=== PATIENT | female | born 1965 | race Hispanic/Latino ===

== ENCOUNTER → 2019-08-07 | Outpatient (CLI) | payer OTHER ==
[~2019-08-07] MED LIST: CALCIUM 500+D1 EACH PO; IOPAMIDOL 370 MG/ML 200 ML INFUS..BTL INJ ONE; OMEGA 3 1,0001 EACH PO; SODIUM CHLORIDE 0.9% 250ML 250 ML ONE
--- NOTE | 2019-08-07 10:38 | Diagnostic Imaging Report ---
EXAM: CT Abdomen and Pelvis WITHOUT and WITH intravenous contrast - Hematuria protocol INDICATION: Gross hematuria COMPARISON: None. TECHNIQUE: Abdomen and pelvis were scanned utilizing a multidetector helical scanner from the lung base to the pubic symphysis before and after administration of IV contrast. Coronal and sagittal reformations were obtained. Hematuria protocol was used. Scan was performed prior to contrast administration and during portal venous phase. IV CONTRAST: 100 mL of Isovue 370 ORAL CONTRAST: Water COMPLICATIONS: None RADIATION DOSE: Total DLP: 667.4 mGy*cm Dose modulation, iterative reconstruction, and/or weight based adjustment of the mA/kV was utilized to reduce the radiation dose to as low as reasonably achievable. FINDINGS: LOWER THORAX: Mild dependent subsegmental atelectasis at the right middle lobe and lingula. HEPATOBILIARY: Segment 6 subcentimeter hypoattenuating focus likely represents a cyst. No other focal liver lesions. No biliary ductal dilation. Unremarkable gallbladder. SPLEEN: No splenomegaly. PANCREAS: No focal masses or ductal dilatation. ADRENALS: No adrenal nodules. KIDNEYS/URETERS: Nonobstructive 2 mm right midpole renal calculus. No other urinary calculi. No hydronephrosis or hydroureter. Excretory phase images demonstrate opacification of most of the course of both ureters with the exception of the left proximal ureter and right mid ureter. No filling defect to suggest urothelial mass lesion. PELVIC ORGANS/BLADDER: No bladder mass or calculus. PERITONEUM / RETROPERITONEUM: No free air or fluid. LYMPH NODES: No lymphadenopathy. VESSELS: Unremarkable. GI TRACT: No abnormal bowel wall thickening. No bowel obstruction. BONES AND SOFT TISSUES: No acute osseous injury. No suspicious lytic or blastic lesions. IMPRESSION: 2 mm right mid pole nonobstructive renal calculus. No hydronephrosis. No other urinary calculi. Signed by: Mabel Randle MD on 08/07/2019 10:34 AM
== END ==
LOC: CT 07:45
PROVIDERS: ATTEND Urology
DX: R31.0 Gross hematuria (principal)
CPT/HCPCS: 74178; J7050; Q9967